=== PATIENT | male | born 1980 | race Two or more races ===

== ENCOUNTER 2023-01-10 17:22 | Emergency (ER) | payer MEDICAID ==
[~2023-01-10] VITALS: Ht 172.7 cm; Wt 65.8 kg
[~2023-01-10 17:22] MED LIST: NAPR-54 PO; PENI500T20 PO
[2023-01-10 17:32] VITALS: BP 132/79; PULSE 100; RESP 17; TEMP 97.6; O2SAT 97
== END 2023-01-10 19:33 | disposition left against medical advice (07) ==
LOC: MED 17:22
DX: M79.89 Other specified soft tissue disorders (principal); Z53.21 Procedure and treatment not carried out due to patient leaving prior to being seen by health care provider
CPT/HCPCS: 99281